=== PATIENT | female | born 1985 | race Caucasian/White ===

== ENCOUNTER 2021-12-16 22:21 | Emergency (ER) | payer OTHER ==
[~2021-12-16] VITALS: Ht 172.7 cm; Wt 63.5 kg
[2021-12-17] MEDS ORDERED: CIPRO500 MG PO (00:46)
== END 2021-12-17 00:57 | disposition home or self-care (01) ==
LOC: ER 22:21
DX: S91.012A Laceration without foreign body, left ankle, initial encounter (principal); S91.312A Laceration without foreign body, left foot, initial encounter; W18.39XA Other fall on same level, initial encounter; Y93.9 Activity, unspecified; Y92.89 Other specified places as the place of occurrence of the external cause; Y99.9 Unspecified external cause status; Z88.8 Allergy status to other drugs, medicaments and biological substances